=== PATIENT | female | born 1990 | race Caucasian/White ===

== ENCOUNTER 2017-11-03 04:20 | Emergency (ER) | payer OTHER ==
[~2017-11-03] VITALS: Ht 162.6 cm; Wt 49.9 kg
[~2017-11-03 04:20] MED LIST: ACETAMINOPHEN-1 EAC1 PO; AMOXICILLIN500 M1 PO; AMOXICILLIN875 MG PO; AZITHROMYCIN 2250 MG PO; CEFDINIR300 MG PO; CEPHALEXIN250 MG PO; CIPROFLOXACIN500 M1 PO; CLEOCIN HCL150 MG PO; DIFLUCAN150 MG PO; DOXYCYCLINE 10100 M1 PO; FLAGYL500 MG PO; FLEXERIL PO; FLONASE 0.05%50 MCG NASAL; HYDROCODON-ACE1 EAC7 PO; HYDROCODONE-APA1 TA1 PO; IBUPROFEN 200200 M1 PO; IBUPROFEN 600600 M1 PO; IBUPROFEN 800800 MG PO; KEFLEX500 MG PO; MEDROLDOSEPACK PO; Magic Mouthwash PO; NOHOMEMEDICATIONS; NORCO 5-325 TA1 EACH PO; PEPCID PO; PHENERGAN 25 MG25 M1 PO; PREDNISONE 10 M10 M1 PO; PROAIR HFA8.5 GM PO; ULTRAM 50MG TAB50 MG PO; VISTARIL 25 MG25 M1 PO
[2017-11-03] MEDS ORDERED: TRIAMCINOLONE A80 G2 TOP ×2 (05:07→05:18)
[2017-11-03] MEDS ORDERED: PREDNISONE 20 M20 MG PO (05:07)
[2017-11-03 06:07] VITALS: BP 115/68
== END 2017-11-03 06:11 | disposition home or self-care (01) ==
LOC: M.ERS 04:20
DX: L25.9 Unspecified contact dermatitis, unspecified cause (principal); F17.210 Nicotine dependence, cigarettes, uncomplicated; Z88.1 Allergy status to other antibiotic agents; Z88.8 Allergy status to other drugs, medicaments and biological substances; Z86.14 Personal history of Methicillin resistant Staphylococcus aureus infection

== ENCOUNTER 2018-01-05 18:24 | Emergency (ER) | payer OTHER ==
[~2018-01-05] VITALS: Ht 162.6 cm; Wt 52.2 kg
[~2018-01-05 18:24] MED LIST changes: +PREDNISONE 20 M20 MG PO; +TRIAMCINOLONE A80 G2 TOP
[2018-01-05 19:34] LABS: URINE BILIRUBIN NEGATIVE (Negative); URINE BLOOD NEGATIVE (Negative); URINE CLARITY CLEAR; URINE COLOR YELLOW; URINE GLUCOSE-RANDOM NEGATIVE (Negative); URINE KETONES NEGATIVE (Negative); URINE LEUKOCYTES-REFLEX NEGATIVE (Negative); URINE NITRITE-REFLEX NEGATIVE (Negative); URINE PROTEIN NEGATIVE (Negative); URINE UROBILINOGEN 0.2 E.U./dl (0.2-1.0)
[2018-01-05] MEDS ORDERED: IBUPROFEN 800800 MG PO (20:07)
[2018-01-05] MEDS ORDERED: FLEXERIL PO (20:07)
[2018-01-05] MEDS ORDERED: TRIAMCINOLONE A80 G2 TOP (20:08)
[2018-01-05 20:15] VITALS: BP 116/73
== END 2018-01-05 20:16 | disposition home or self-care (01) ==
LOC: M.ERS 18:24
PROVIDERS: Nurse Practitioner Family
DX: M54.5 Low back pain (principal); R51 Headache; R21 Rash and other nonspecific skin eruption; Z86.14 Personal history of Methicillin resistant Staphylococcus aureus infection; F17.210 Nicotine dependence, cigarettes, uncomplicated; Z88.1 Allergy status to other antibiotic agents; Z88.8 Allergy status to other drugs, medicaments and biological substances

== ENCOUNTER 2019-11-25 09:30 | Emergency (ER) | payer OTHER ==
[~2019-11-25] VITALS: Ht 162.6 cm; Wt 56.7 kg
[2019-11-25 09:47] VITALS: BP 128/85
== END 2019-11-25 10:14 | disposition home or self-care (01) ==
LOC: M.ERS 09:30
DX: O20.0 Threatened abortion (principal); N80.9 Endometriosis, unspecified; F17.210 Nicotine dependence, cigarettes, uncomplicated; Z3A.01 Less than 8 weeks gestation of pregnancy; Z86.14 Personal history of Methicillin resistant Staphylococcus aureus infection; Z88.1 Allergy status to other antibiotic agents; Z88.2 Allergy status to sulfonamides; Z88.8 Allergy status to other drugs, medicaments and biological substances

== ENCOUNTER 2020-02-21 15:09 | Emergency (ER) | payer OTHER ==
[~2020-02-21] VITALS: Ht 162.6 cm; Wt 52.2 kg
[2020-02-21] MEDS ORDERED: IBUPROFEN 800800 M1 PO (15:22)
[2020-02-21] MEDS ORDERED: NORCO 5-325 TA1 EAC2 PO (15:22)
== END 2020-02-21 16:21 | disposition home or self-care (01) ==
LOC: M.ERS 15:09
DX: S82.145A Nondisplaced bicondylar fracture of left tibia, initial encounter for closed fracture (principal); F17.210 Nicotine dependence, cigarettes, uncomplicated; Z86.14 Personal history of Methicillin resistant Staphylococcus aureus infection; Z88.1 Allergy status to other antibiotic agents; Z88.8 Allergy status to other drugs, medicaments and biological substances; V29.9XXA Motorcycle rider (driver) (passenger) injured in unspecified traffic accident, initial encounter; Y93.89 Activity, other specified; Y92.89 Other specified places as the place of occurrence of the external cause; Y99.8 Other external cause status

== ENCOUNTER 2020-04-06 18:34 | Emergency (ER) | payer OTHER ==
[~2020-04-06] VITALS: Ht 162.6 cm; Wt 54.4 kg
[~2020-04-06 18:34] MED LIST changes: +IBUPROFEN 800800 M1 PO; +NORCO 5-325 TA1 EAC2 PO
[2020-04-06] MEDS ORDERED: HYDROCODON-ACE1 EAC7 PO (20:44)
[2020-04-06] MEDS ORDERED: IBUPROFEN 800800 MG PO (20:44)
[2020-04-06 20:51] VITALS: BP 140/96
== END 2020-04-06 20:53 | disposition home or self-care (01) ==
LOC: M.ERS 18:34
DX: L02.416 Cutaneous abscess of left lower limb (principal); F17.210 Nicotine dependence, cigarettes, uncomplicated; Z88.2 Allergy status to sulfonamides; Z88.8 Allergy status to other drugs, medicaments and biological substances

== ENCOUNTER 2021-06-21 02:42 | Emergency (ER) | payer OTHER ==
[~2021-06-21] VITALS: Ht 162.6 cm; Wt 54.4 kg
[2021-06-21 03:03] LABS: URINE BILIRUBIN NEGATIVE (Negative); URINE BLOOD 3+ (Negative); URINE CLARITY SL HAZY; URINE COLOR YELLOW; URINE GLUCOSE-RANDOM NEGATIVE (Negative); URINE KETONES NEGATIVE (Negative); URINE LEUKOCYTES-REFLEX NEGATIVE (Negative); URINE NITRITE-REFLEX NEGATIVE (Negative); URINE PROTEIN TRACE (Negative); URINE SPECIFIC GRAVITY 1.025 (1.005-1.030)
[2021-06-21 03:04] LABS: AMORPHOUS URATES Few /LPF (None Seen); BACTERIA-REFLEX 1-9 Few /HPF (None Seen); CASTS None Seen /LPF (None Seen); MUCUS 0-3 Light strn/LPF (None Seen); SQUAMOUS 0-3 Few /LPF (0-3); URINE RBC >20 Many /HPF (0-2); URINE WBC-REFLEX None Seen /HPF (0-5)
[2021-06-21 03:17] LABS: ABSOLUTE BASOPHILS 0.1 thou/uL (0.0-0.2); ABSOLUTE EOSINOPHILS 0.3 thou/uL (0.0-0.7); ABSOLUTE LYMPHOCYTES 2.8 thou/uL (0.8-5.3); ABSOLUTE NEUTROPHILS 11.1 thou/uL (1.6-8.1); BASOPHILS 0.7 %; EOSINOPHILS 1.8 %; HEMATOCRIT 39.9 % (37.0-47.0); HEMOGLOBIN 13.5 gm/dL (12.0-15.0); LYMPHOCYTES 18.2 %; MCH 29.1 pg (26.0-34.0); MCHC 33.7 g/dL (28.0-37.0); MCV 86.1 fL (80.0-100.0); MONOCYTES 6.7 %; MPV 8.6 fl. (7.2-11.1); NUCLEATED RBCS 0 /100WBC; PLATELET COUNT* 297 thou/uL (150-400); POLYS 72.6 %; RBC 4.63 mil/uL (4.20-5.00); RDW-CV 13.1 % (10.5-14.5); WBC 15.3 thou/uL (4.0-11.0)
[2021-06-21] MEDS ORDERED: MEDROXYPROGESTE10 MG PO (03:43)
[2021-06-21 03:51] VITALS: BP 152/79
== END 2021-06-21 03:52 | disposition home or self-care (01) ==
LOC: M.ERS 02:42
PROVIDERS: Emergency Medicine
DX: N93.9 Abnormal uterine and vaginal bleeding, unspecified (principal); F17.210 Nicotine dependence, cigarettes, uncomplicated; Z88.2 Allergy status to sulfonamides